=== PATIENT | male | born 1960 | race Caucasian/White ===

== ENCOUNTER 2019-05-30 18:01 | Emergency (ER) | payer BC ==
[2019-05-30 18:32] VITALS: BP 138/84
--- NOTE | 2019-05-30 19:11 | UC ---
Lower Extremity/Ankle HPI - HPI Summary HPI Summary: Pt presents with c/o right ankle pain and swelling s/p stepping off a step from deck. Pt reports that he had instant onset of pain and swelling - History of Current Complaint Chief Complaint: UCLowerExtremity Stated Complaint: RIGHT ANKLE INJURY, FALL Time Seen by Provider: 05/30/19 18:42 Hx Obtained From: Patient Onset/Duration: Sudden Onset, Still Present Severity Initially: Moderate Severity Currently: Mild Pain Intensity: 2 Aggravating Factor(s): Standing, Ambulation Alleviating Factor(s): Rest Able to Bear Weight: Yes - minimal PMH/Surg Hx/FS Hx/Imm Hx Previously Healthy: Yes - Surgical History Surgical History: Yes Surgery Procedure, Year, and Place: Tonsils. Sinus - Family History Known Family History: Positive: Cardiac Disease - Social History Occupation: Employed Full-time Lives: With Family Alcohol Use: Occasionally Substance Use Type: None Smoking Status (MU): Never Smoked Tobacco Have You Smoked in the Last Year: No Review of Systems All Other Systems Reviewed And Are Negative: Yes Constitutional: Positive: Negative Skin: Positive: Negative Eyes: Positive: Negative ENT: Positive: Negative Respiratory: Positive: Negative Cardiovascular: Positive: Negative Gastrointestinal: Positive: Negative Genitourinary: Positive: Negative Motor: Positive: Decreased ROM - right ankle swelling lateral aspect Neurovascular: Positive: Negative Musculoskeletal: Positive: Arthralgia, Decreased ROM, Edema, Myalgia Neurological: Positive: Negative Psychological: Positive: Negative Is Patient Immunocompromised?: No Physical Exam Triage Information Reviewed: Yes Appearance: Well-Appearing Vital Signs: Initial Vital Signs Temp 99.7 F 05/30/19 18:27 Pulse 78 05/30/19 18:27 Resp 16 05/30/19 18:27 BP 138/84 05/30/19 18:27 Pulse Ox 97 05/30/19 18:27 Vital Signs Reviewed: Yes Eye Exam: Normal ENT: Positive: Hearing grossly normal Dental Exam: Normal Neck exam: Normal Respiratory: Positive: No respiratory distress Musculoskeletal: Positive: ROM Limited @ - right ankle, Edema @ - right lateral malleolus Neurological Exam: Normal Psychological Exam: Normal Skin Exam: Normal Diagnostics - Radiology No standard instances Radiology Interpretation Completed By: ED Physician - postive for distal fibula fracture Lower Extremity Course/Dx - Differential Dx/Diagnosis Differential Diagnosis/HQI/PQRI: Fracture (Closed), Sprain, Strain Provider Diagnosis: Right fibular fracture Discharge ED - Sign-Out/Discharge Documenting (check all that apply): Patient Departure All imaging exams completed and their final reports reviewed: No - Discharge Plan Condition: Stable Disposition: HOME Patient Education Materials: Ankle Fracture (ED), Safe Use of NSAIDs (ED) Referrals: Aakash Rodriguez MD [Medical Doctor] - As Soon As Possible Olga TESFAYE,Rom Hussein [Primary Care Provider] - If Needed - Billing Disposition and Condition Condition: STABLE Disposition: Home
--- NOTE | 2019-05-31 07:35 | UC ---
- Progress Note Progress Note: Reviewed Dr. Joiner's radiology report: Soft tissue swelling and avulsion fracture. No change from wet read, no management change. Course/Dx - Diagnoses Provider Diagnoses: Right fibular fracture Discharge ED - Sign-Out/Discharge Documenting (check all that apply): Patient Departure All imaging exams completed and their final reports reviewed: Yes - Discharge Plan Condition: Stable Disposition: HOME Patient Education Materials: Ankle Fracture (ED), Safe Use of NSAIDs (ED) Referrals: Aakash Rodriguez MD [Medical Doctor] - As Soon As Possible Olga TESFAYE,Rom Hussein [Primary Care Provider] - If Needed - Billing Disposition and Condition Condition: STABLE Disposition: Home
== END 2019-05-30 19:30 | disposition home or self-care (01) ==
LOC: UCCORT 18:01
DX: S82.831A Other fracture of upper and lower end of right fibula, initial encounter for closed fracture (principal); W22.09XA Striking against other stationary object, initial encounter; Y92.9 Unspecified place or not applicable
CPT/HCPCS: 99213; G0463

== ENCOUNTER 2021-02-01 05:56 | Observation (INO) ==
[2021-02-01] MEDS ORDERED: Buffered Lidocaine 1% SYRIN 1 ml INTRADERM ONE ×2 (06:00→06:33)
[2021-02-01] MEDS ORDERED: Lactated Ringers 1000 ml BAG 1,000 ML IV SCH (06:00)
[2021-02-01] MEDS ORDERED: ceFAZolin 2 GM PREMIX 2 GM/50 ML BAG ONE (06:33)
[2021-02-01] MEDS ORDERED: Bupivacaine 0.5% SDV PF 30ML VIAL ONE (07:06)
[2021-02-01] MEDS ORDERED: Midazolam 2 mg/2 ml VIAL 1 mg/ml 2 ml VIAL (2 mg) ONE ×2 (07:19→08:17)
[2021-02-01] MEDS ORDERED: Ketamine HCL 50 mg/ml 10 ml VIAL (500 MG) ONE (07:20)
[2021-02-01] MEDS ORDERED: fentaNYL 100 mcg/2 ml 50 MCG/ML VIAL ONE (07:20)
[2021-02-01] MEDS ORDERED: Rocuronium 50 mg VIAL 10 mg/ml 5 ml VIAL (50 mg) ONE ×4 (07:20→12:05)
[2021-02-01] MEDS ORDERED: Propofol 10 MG/ML 20 ML BTL ONE ×3 (07:21→11:26)
[2021-02-01] MEDS ORDERED: Lidocaine 2% PF 5 ML VIAL ONE (07:21)
[2021-02-01] MEDS ORDERED: HYDROmorphone 1 MG/1 ML SYRINGE IV PRN (09:33)
[2021-02-01] MEDS ORDERED: Naloxone 0.4 mg VIAL 0.4 mg/ml 1 ml VIAL IV PRN (09:33)
[2021-02-01] MEDS ORDERED: Ondansetron 4 mg VIAL 2 MG/ML 2 ml VIAL IV PRN (09:33)
[2021-02-01] MEDS ORDERED: Phenylephrine 40 mcg/mL 10mL (400mcg) SYRINGE ONE (09:38)
[2021-02-01] MEDS ORDERED: EPHEDrine (Pressors) 50 MG/ML VIAL ONE (09:38)
[2021-02-01] MEDS ORDERED: Ondansetron 4 mg VIAL 2 MG/ML 2 ml VIAL ONE (12:26)
[2021-02-01] MEDS ORDERED: Dexamethasone IV 4 MG/ML VIAL 1 ml VIAL ONE (12:26)
[2021-02-01] MEDS ORDERED: HYDROcodone/ACETAMIN 5/325 mg TAB PO PRN (15:26)
[2021-02-01] MEDS ORDERED: Finasteride(ALOPECIA) 1 mg(NF) PO SCH (18:00)
[2021-02-01] MEDS ORDERED: GENVOYA PO SCH (21:00)
[2021-02-02] MEDS ORDERED: POTASSIUM 99 MG PO SCH (09:00)
[2021-02-02] MEDS ORDERED: LYSINE 500 MG PO SCH (09:00)
[2021-02-02] MEDS ORDERED: OMEGA 3 FATTY ACIDS PO SCH (09:00)
[2021-02-02] MEDS ORDERED: VITAMIN E PO SCH (09:00)
[2021-02-02] MEDS ORDERED: Aspirin EC 81 mg TAB.EC (enteric coated) PO SCH (09:00)
[2021-02-02] MEDS ORDERED: Calcium/Vitamin D TAB 250/125 TAB PO SCH (09:00)
[2021-02-02] MEDS ORDERED: Vitamin THERAPEUTIC TAB PO SCH (09:00)
[2021-02-02 11:02] VITALS: BP 110/58
== END 2021-02-02 12:48 | disposition home or self-care (01) ==
LOC: OR 05:56 → SSU 05:56
PROVIDERS: ADMIT Surgery; ATTEND Surgery

== ENCOUNTER 2021-02-09 10:55 | Inpatient (IN) ==
[2021-02-09] MEDS ORDERED: Lactated Ringers 1000 ml BAG 1,000 ML IV ONE (11:22)
[2021-02-09] MEDS ORDERED: Piperacillin/Tazobac ADVAN 3.375 GM in NS 0.9% 100 ml BAG 100 ML IV ONE (11:23)
[2021-02-09] MEDS ORDERED: Zosyn per Pharmacy NOTE FOLLOW UP SCH (12:00)
[2021-02-09] MEDS: NS 0.9% 1000 ml BAG 1,000 ML IV SCH (13:28)
[2021-02-09] MEDS ORDERED: Iohexol 300 (CONTRAST) 10 ML SDV IV ONE (13:34)
[2021-02-09 15:14] LABS: ABS Basophils 0.1 10^3/ul (0-0.2); ABS Eosinophils 0.5 10^3/ul (0-0.6); ABS Lymphocytes 1.7 10^3/ul (1.0-4.8); ABS Monocytes 1.6 10^3/ul (0-0.8); ABS Neutrophils 10.2 10^3/ul (1.5-7.7); Eosinophil % 3.7 %; Hematocrit 40 % (42-52); Lymphocyte % 12.3 %; Mean Corpuscular HGB Conc 30 g/dL (31-36); Mean Corpuscular Hemoglobin 21 pg (27-31); Mean Corpuscular Volume 71 fL (80-94); Mean Platelet Volume 8.5 fL (7.4-10.4); Platelet Count 243 10^3/uL (150-450); Red Blood Count 5.61 10^6 /uL (4.18-5.48); Red Cell Distribution Width 26 % (10-15); White Blood Count 14.1 10^3/uL (3.5-10.8)
[2021-02-09 15:17] LABS: Calcium 9.6 mg/dL (8.6-10.3); Potassium 4.3 mmol/L (3.5-5.0)
[2021-02-09 15:23] LABS: EGFR African American 98.5 (>60); EGFR Non-African American 81.4 (>60)
[2021-02-09] MEDS: ZOSYN 3.375 GM Q8H per EXTENDED INFUSION IV SCH (17:48)
[2021-02-09] MEDS ORDERED: Aspirin EC 81 mg TAB.EC (enteric coated) PO SCH (21:00)
[2021-02-09] MEDS ORDERED: ELVITEG COB EMTRI TENOF ALAFEN PO SCH (21:00)
[2021-02-09] MEDS ORDERED: FINASTERIDE 1 MG PO SCH (21:00)
[2021-02-10] MEDS: ZOSYN 3.375 GM Q8H per EXTENDED INFUSION IV SCH ×2 (01:42→08:49)
[2021-02-10] MEDS: NS 0.9% 1000 ml BAG 1,000 ML IV SCH (01:45)
[2021-02-10 05:30] LABS: ABS Eosinophils 0.5 10^3/ul (0-0.6); ABS Monocytes 1.3 10^3/ul (0-0.8); ABS Neutrophils 7.8 10^3/ul (1.5-7.7); Eosinophil % 4.4 %; Hematocrit 36 % (42-52); Hemoglobin 10.8 g/dL (14.0-18.0); Lymphocyte % 17.1 %; Mean Corpuscular HGB Conc 30 g/dL (31-36); Mean Corpuscular Hemoglobin 21 pg (27-31); Mean Corpuscular Volume 70 fL (80-94); Mean Platelet Volume 8.9 fL (7.4-10.4); Platelet Count 220 10^3/uL (150-450); Red Blood Count 5.08 10^6 /uL (4.18-5.48); Red Cell Distribution Width 25 % (10-15); White Blood Count 11.7 10^3/uL (3.5-10.8)
[2021-02-10 05:43] LABS: C Reactive Protein 129.86 mg/L (<8.01); EGFR African American 90.8 (>60); Potassium 4.2 mmol/L (3.5-5.0)
[2021-02-10 06:25] LABS: Microcytosis 2+
[2021-02-10] MEDS ORDERED: NON FORMULARY MED (Ferrous Sulfate 27 mg iron Tablet) PO SCH (09:00)
[2021-02-10 11:48] VITALS: BP 108/61
== END 2021-02-10 13:41 | disposition home or self-care (01) | DRG 721 ==
LOC: SSU 10:57
PROVIDERS: ADMIT Surgery; ATTEND Surgery